=== PATIENT | male | born 1985 | race Two or more races ===

== ENCOUNTER 2017-05-01 00:07 | Emergency (ER) | payer OTHER ==
[~2017-05-01] VITALS: Ht 177.8 cm; Wt 83.5 kg
[2017-05-01] MEDS ORDERED: LEVOTHYROXINE (00:21)
[2017-05-01] MEDS ORDERED: LORAZEPAM 0.5 MG TABLET PO ONE (00:30)
[2017-05-01] MEDS ORDERED: LORAZEPAM 1 MG TABLET ONE (00:50)
--- NOTE | 2017-05-01 01:47 | NUR ---
Patient discharged to home in stable conditon. Written and verbal after care instructions given. Patient verbalizes understanding of instructions. Ambulated from ER with stable gait. patient will be driven home by in private vehicle. All belongings with patient.
[2017-05-01 01:50] VITALS: BP 128/78
== END 2017-05-01 01:51 | disposition home or self-care (01) ==
LOC: ER 00:19
DX: F41.0 Panic disorder [episodic paroxysmal anxiety] (principal)
CPT/HCPCS: 70450; 93005; A4663

== ENCOUNTER 2021-02-04 16:57 | Emergency (ER) | payer OTHER ==
[~2021-02-04] VITALS: Ht 172.7 cm; Wt 74.8 kg
[~2021-02-04 16:57] MED LIST: LEVOTHYROXINE
--- NOTE | 2021-02-04 17:11 | NUR ---
Dr Blackman at the bedside for MSE.
--- NOTE | 2021-02-04 17:20 | NUR ---
Pt refused Tetanus vaccine, Dr Blackman aware.
[2021-02-04 17:31] VITALS: BP 109/72
--- NOTE | 2021-02-04 17:31 | NUR ---
Patient discharged to home in stable condition. Written and verbal after care instructions given. Patient verbalizes understanding of instructions. Stressed follow up or return to ER for worsening s/s.
== END 2021-02-04 17:32 | disposition home or self-care (01) ==
LOC: ER 16:58
DX: S01.21XA Laceration without foreign body of nose, initial encounter (principal); W22.8XXA Striking against or struck by other objects, initial encounter; Y92.89 Other specified places as the place of occurrence of the external cause
CPT/HCPCS: A4663